=== PATIENT | female | born 2000 | race Caucasian/White ===

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

== ENCOUNTER 2021-03-17 19:13 | Inpatient (IN) | payer SELFPAY ==
[2021-03-17 22:44] VITALS: BMI 19.6
[2021-03-17] MEDS ORDERED: Ondansetron ODT 4 MG TAB PO PRN (22:58)
[2021-03-17] MEDS ORDERED: Vancomycin HCl 1.5 GM in Sodium Chloride 0.9% 250 ML 300 ML IVPB SCH (23:30)
[2021-03-17] MEDS ORDERED: Lorazepam 0.5 MG TAB PO SCH (23:59)
[2021-03-18] MEDS: Cefepime 2 GM in Sodium Chloride 0.9% 100 ML IVPB SCH ×3 (00:22→14:36)
[2021-03-18] MEDS: metroNIDAZOLE 500 MG in Premix Bag 1 BAG IVPB SCH ×4 (00:24→20:13)
[2021-03-18 05:05] LABS: #Lymphocytes 2.6 thou/uL (1.20-3.40); #Monocytes 1.1 thou/uL (0.11-0.59); #Neutrophils 12.4 thou/uL (1.40-6.50); %Eosinophils 0.2 % (0.0-10.0); %Lymphocytes 15.9 % (21.0-51.0); %Monocytes 6.9 % (0.0-10.0); %Neutrophils 76.9 % (42.0-75.0); Hemoglobin 10.4 g/dL (12.0-16.0); Mean Corpuscular HGB CONC 32.5 g/dL (32.0-36.0); Mean Corpuscular Hemoglobin 30.9 pg (27.0-31.0); Mean Corpuscular Volume 94.9 fL (78.0-98.0); Mean Platelet Volume 9.5 fL (7.4-10.4); Platelet Count 184 thou/uL (130-400); RBC Distribution Width 11.2 % (11.5-14.5); Red Blood Cell (RBC) Count 3.36 mill/uL (4.20-5.40); White Blood Cell (WBC) Count 16.1 thou/uL (4.8-10.8)
[2021-03-18 05:26] LABS: Anion Gap 9 mmol/L (10-20); BUN (Urea Nitrogen) 8 mg/dL (7.0-18.7); Calc. Creatinine Clearance 125 mL/min (70-130); Calcium 8.9 mg/dL (7.8-10.44); Carbon Dioxide 24 mmol/L (22-29); Chloride 107 mmol/L (98-107); Glucose 115 mg/dL (70-105); Potassium 3.6 mmol/L (3.5-5.1); Sodium 136 mmol/L (136-145)
[2021-03-18] MEDS: Vancomycin HCl 1.5 GM in Sodium Chloride 0.9% 250 ML 300 ML IVPB SCH ×2 (06:10→18:34)
[2021-03-18] MEDS ORDERED: diphenhydrAMINE 25 MG in Sodium Chloride 0.9% 50 ML IVPB PRN (08:33)
[2021-03-18] MEDS ORDERED: diphenhydrAMINE 50 MG/ML VIAL IVP SCH (08:45)
[2021-03-18] MEDS ORDERED: Dexamethasone 4 mg/ml Vial SLOW IVP SCH (09:00)
[2021-03-18] MEDS: Ondansetron PF 4 MG/2 ML Vial IVP PRN (09:04)
[2021-03-18] MEDS: Enoxaparin Sodium 40 MG/0.4 ML SYRINGE SC SCH (09:10)
[2021-03-18] MEDS ORDERED: Lorazepam 2 MG/ML VIAL SLOW IVP SCH (10:15)
[2021-03-18] MEDS ORDERED: Magnevist 469MG/ML 20 ML VIAL ONE ×3 (10:26)
[2021-03-18] MEDS: Dexamethasone 4 mg/ml Vial SLOW IVP SCH (14:24)
[2021-03-18] MEDS: diphenhydrAMINE 25 MG CAP PO PRN (14:24)
[2021-03-18] MEDS: HYDROcodone/Acetaminophen 5/325 mg Tablet PO PRN (20:18)
[2021-03-19] MEDS: Cefepime 2 GM in Sodium Chloride 0.9% 100 ML IVPB SCH ×2 (03:20→15:35)
[2021-03-19] MEDS: diphenhydrAMINE 25 MG CAP PO PRN (03:20)
[2021-03-19] MEDS: metroNIDAZOLE 500 MG in Premix Bag 1 BAG IVPB SCH ×3 (04:21→20:01)
[2021-03-19] MEDS: Vancomycin HCl 1.5 GM in Sodium Chloride 0.9% 250 ML 300 ML IVPB SCH ×2 (08:54→18:24)
[2021-03-19] MEDS: Enoxaparin Sodium 40 MG/0.4 ML SYRINGE SC SCH (08:54)
[2021-03-19] MEDS ORDERED: clonazePAM 0.5 MG TAB PO PRN (10:58)
[2021-03-19] MEDS: Acetaminophen 325 MG TAB PO PRN ×2 (11:13→20:01)
[2021-03-19] MEDS: ALPRAZolam 0.25 MG TAB PO PRN ×2 (11:13→20:10)
[2021-03-19] MEDS: HYDROcodone/Acetaminophen 5/325 mg Tablet PO PRN (15:33)
[2021-03-19] MEDS: Dexamethasone 4 mg/ml Vial SLOW IVP SCH (15:34)
[2021-03-19] MEDS: Ondansetron PF 4 MG/2 ML Vial IVP PRN (16:05)
[2021-03-20] MEDS: Cefepime 2 GM in Sodium Chloride 0.9% 100 ML IVPB SCH ×2 (02:35→15:02)
[2021-03-20] MEDS: Acetaminophen 325 MG TAB PO PRN (03:55)
[2021-03-20] MEDS: metroNIDAZOLE 500 MG in Premix Bag 1 BAG IVPB SCH ×3 (03:56→22:48)
[2021-03-20] MEDS: Vancomycin HCl 1.5 GM in Sodium Chloride 0.9% 250 ML 300 ML IVPB SCH ×2 (05:27→18:24)
[2021-03-20] MEDS: Enoxaparin Sodium 40 MG/0.4 ML SYRINGE SC SCH (09:46)
[2021-03-20] MEDS ORDERED: metroNIDAZOLE 500 MG/100 ML BAG ONE (12:06)
[2021-03-20] MEDS: Dexamethasone 4 mg/ml Vial SLOW IVP SCH (15:02)
[2021-03-20] MEDS: HYDROcodone/Acetaminophen 5/325 mg Tablet PO PRN ×2 (15:09→19:59)
[2021-03-20] MEDS ORDERED: Polyethylene Glycol 3350 17 GM Packet PO PRN (15:42)
[2021-03-20] MEDS ORDERED: Docusate 100 MG CAP PO SCH (16:00)
[2021-03-20 17:46] LABS: Vancomycin, Trough 4.3 ug/mL
[2021-03-20] MEDS: Docusate 100 MG CAP PO SCH (20:01)
[2021-03-21] MEDS: Vancomycin HCl 1.5 GM in Sodium Chloride 0.9% 250 ML 300 ML IVPB SCH ×2 (01:17→11:08)
[2021-03-21] MEDS: Cefepime 2 GM in Sodium Chloride 0.9% 100 ML IVPB SCH ×2 (04:25→15:15)
[2021-03-21 05:19] LABS: #Lymphocytes 2.2 thou/uL (1.20-3.40); #Monocytes 0.7 thou/uL (0.11-0.59); #Neutrophils 7.1 thou/uL (1.40-6.50); %Basophils 0.4 % (0.0-1.0); %Eosinophils 0.4 % (0.0-10.0); %Lymphocytes 22.1 % (21.0-51.0); %Monocytes 6.4 % (0.0-10.0); %Neutrophils 70.7 % (42.0-75.0); Hemoglobin 11.4 g/dL (12.0-16.0); Mean Corpuscular HGB CONC 32.3 g/dL (32.0-36.0); Mean Corpuscular Hemoglobin 30.6 pg (27.0-31.0); Mean Corpuscular Volume 94.6 fL (78.0-98.0); Mean Platelet Volume 8.4 fL (7.4-10.4); Platelet Count 234 thou/uL (130-400); RBC Distribution Width 10.9 % (11.5-14.5); Red Blood Cell (RBC) Count 3.73 mill/uL (4.20-5.40); White Blood Cell (WBC) Count 10.1 thou/uL (4.8-10.8)
[2021-03-21 05:42] LABS: Anion Gap 12 mmol/L (10-20); BUN (Urea Nitrogen) 9 mg/dL (7.0-18.7); Calc. Creatinine Clearance 118 mL/min (70-130); Calcium 9.3 mg/dL (7.8-10.44); Carbon Dioxide 23 mmol/L (22-29); Chloride 105 mmol/L (98-107); Glucose 101 mg/dL (70-105); Potassium 3.7 mmol/L (3.5-5.1); Sodium 136 mmol/L (136-145)
[2021-03-21] MEDS ORDERED: metroNIDAZOLE 500 MG in Premix Bag 1 BAG IVPB SCH (08:00)
[2021-03-21] MEDS: Enoxaparin Sodium 40 MG/0.4 ML SYRINGE SC SCH (09:06)
[2021-03-21] MEDS: Docusate 100 MG CAP PO SCH ×2 (09:07→20:49)
[2021-03-21] MEDS: HYDROcodone/Acetaminophen 5/325 mg Tablet PO PRN ×2 (09:31→14:20)
[2021-03-21] MEDS ORDERED: Ondansetron ODT 4 MG TAB PO PRN (13:18)
[2021-03-21] MEDS ORDERED: Ondansetron PF 4 MG/2 ML Vial IVP PRN (13:19)
[2021-03-21] MEDS: Dexamethasone 4 mg/ml Vial SLOW IVP SCH (15:15)
[2021-03-21 21:01] VITALS: BP 136/61; TEMP 98
== END 2021-03-21 21:06 | disposition short-term general hospital (02) | DRG 645 ==
LOC: 2SE 19:30
PROVIDERS: ADMIT Family Medicine; ATTEND Hospitalist
DX: D49.7 Neoplasm of unspecified behavior of endocrine glands and other parts of nervous system (principal); D64.9 Anemia, unspecified; K59.00 Constipation, unspecified; H53.149 Visual discomfort, unspecified; Z20.822 Contact with and (suspected) exposure to COVID-19; Z91.018 Allergy to other foods
CPT/HCPCS: 36415; 72156; 72157; 72158; 80048; 80202; 85025; 93306; A9579; J0692; J1100; J1200; J1650; J2060; J2405; J3370; J3490; J7050; Q0162; Q0163